=== PATIENT | male | born 1960 | race Caucasian/White ===

== ENCOUNTER 2017-04-07 06:30 | Observation (INO) ==
[2017-04-07] MEDS ORDERED: Acetaminophen 325 MG TABLET PO PRN ×2 (09:46→10:41)
[2017-04-07] MEDS ORDERED: Naloxone 0.4 MG/ML INJ IVP PRN (09:48)
[2017-04-07] MEDS ORDERED: Ondansetron 4 MG/2 ML VIAL IVP PRN (09:48)
[2017-04-07] MEDS ORDERED: Nitroglycerin 0.4 MG TAB.SUBL SL PRN (09:48)
[2017-04-07] MEDS ORDERED: (Rizatriptan Benzoate [Maxalt] 5 MG) PO PRN (10:38)
[2017-04-07] MEDS ORDERED: *HR* Morphine 2 MG/ML SYRINGE IVP PRN (10:41)
[2017-04-07] MEDS ORDERED: 0.9 % Sodium Chloride 1,000 ML ONE (10:46)
--- NOTE | 2017-04-07 10:47 | Internal Med History&Physical ---
Date of Encounter: 04/07/17 Time of Encounter: 10:42 Assessment and Plan (1) Coronary artery disease Current visit: Yes Status: Acute Patient had a stress test in 2014 which showed a fixed inferior wall defect and no evidence of ischemia. EF was normal at that time. He follows up with cardiology. We will continue aspirin. Given his ongoing chest pain wall consult cardiology for concern of unstable angina and possible need for cardiac catheterization. Qualifiers: Coronary Disease-Associated Artery/Lesion type: [place] artery [place] vs. transplanted heart: [place] heart Associated angina: with unstable angina Qualified Code(s): I25.110 - Atherosclerotic heart disease of [place] coronary artery with unstable angina pectoris (2) Essential hypertension Current visit: Yes Status: Acute He is on diltiazem at home. We will continue this. His blood pressure dropped with administration of nitroglycerin in the emergency department and therefore I will hold antihypertensives today. (3) Hyperlipidemia Current visit: Yes Status: Acute Continue with simvastatin per home dose regimen. Qualifiers: Hyperlipidemia type: unspecified Qualified Code(s): E78.5 - Hyperlipidemia , unspecified (4) Dementia Current visit: Yes Status: Acute Close mental status monitoring. Avoid overly sedative medication. Qualifiers: Dementia type: unspecified type Dementia behavioral disturbance: without behavioral disturbance Qualified Code(s): F03.90 - Unspecified dementia without behavioral disturbance (5) Chest pain Current visit: No Status: Acute He has had recurrent chest pain concerning for unstable angina. We will provide nitroglycerin and morphine for pain. He is chronically anticoagulated with Eliquis said this point I will hold any further anticoagulation. Continue with aspirin and statin. Trend troponin. Consult cardiology. Qualifiers: Chest pain type: chest pain due to myocardial ischemia Ischemic chest pain type: unstable angina pectoris Qualified Code(s): I20.0 - Unstable angina Internal Medicine - H&P: HPI Admitted From: Intrahospital Transfer Plans for Post Hospital Care: Home History of present illness: Mr. Ferguson is a 56 year old male with past medical history significant for coronary artery disease, hypertension, mild dementia, dyslipidemia, status post pacemaker placement who was transferred from [facility] where he presented with chest pain. Mr. Ferguson reports that he started experiencing chest pain at 10 PM last night located in the left side of the chest. The pain was pressure-like, severe, worse with deep breathing and not associated with diaphoresis nausea or shortness of breath. He presented to [place] where he was given nitroglycerin which did not help relieve his pain. Morphine caused some relief. Currently the patient continues to have dull left-sided chest pain which he grades as 3/10. Review of systems: Memory impairment secondary to dementia A 10 point review of systems was negative except as above Family history significant for coronary artery disease and multiple multiple myeloma in the patient's father Past Med Surg Social Fam HX - Past Medical History Medical history: coronary artery disease, CVA, dementia, hyperlipidemia, hypertension, other Psychiatric history: no psych history - Past Surgical History Surgical History: cholecystectomy, herniorrhaphy, pacemaker/AICD - Social History Smoking Status: Former smoker Smokeless Tobacco Status: No Alcohol use: none Drug use: none Internal Medicine - H&P: Meds Apixaban [Eliquis] 5 mg PO BID 10/20/16 [History] Aspirin 325 mg PO DAILY 10/20/16 [History] Citalopram [CeleXA] 20 mg PO HS 10/20/16 [History] Diltiazem CD (24hr) [Cardizem CD] 180 mg PO HS 10/20/16 [History] Propranolol HCl 80 mg PO HS 10/20/16 [History] Psyllium Husk [Daily Fiber] 0.52 gm PO HS 10/20/16 [History] Rizatriptan Benzoate [Maxalt] 5 mg PO DAILY PRN 10/20/16 [History] Simvastatin 10 mg PO HS 10/20/16 [History] Namzaric 28 mg-10 mg Capsule mg PO DAILY 04/07/17 [History] Tamsulosin HCl [Flomax] 0.4 mg PO DAILY 04/07/17 [History] Allergies meperidine [From Demerol] Adverse Reaction (Verified 04/07/17 04:23) anger All Systems PM: A 10-system review of systems was performed and is negative for pertinent findings except as documented above in the HPI. - Constitutional Vitals: Temp Pulse Resp BP Pulse Ox 97.4 F L 70 15 120/80 95 04/07/17 08:47 04/07/17 08:47 04/07/17 08:47 04/07/17 08:47 04/07/17 09:20 General appearance: Present: A&O X 3 - Respiratory Respiratory exam: Present: CTAB. Absent: accessory muscle use, rales, rhonchi, wheezes - Cardiovascular Cardiovascular exam: Present: RRR, +S1, +S2. Absent: diastolic murmur, gallop, rubs, systolic murmur - GI/Abdominal GI/Abdominal exam: Present: normal bowel sounds, soft, no peritoneal signs. Absent: distended, tenderness - Neurological Exam Neurological exam: Present: CN II-XII intact, oriented X3, no focal deficits. Absent: pronater drift, facial droop, speech deficit - Skin Skin exam: Present: dry, intact Internal Med - H&P Results - Labs Labs: Cardiac Enzymes 04/07/17 Range/Units 10:05 Troponin I 0.01 (0-0.03) ng/mL Per [facility] medical record, laboratory data collected on 04/07/2017: Troponin 0.02, creatinine 1.08, BNP less than 10. Chest x-ray [facility] reveals no acute cardiopulmonary disease. - EKG Data -: EKG Interpreted by Myself (Atrial ventricular paced with 100% capture)
[2017-04-07] MEDS: 0.9 % Sodium Chloride 1,000 ML IVC SCH ×2 (12:04→20:08)
[2017-04-07] MEDS ORDERED: Regadenoson 0.4 MG/5 ML SYRINGE IVP ONE (12:35)
--- NOTE | 2017-04-07 14:23 | Cardiology Consult Note ---
Date of Encounter: 04/07/17 Time of Encounter: 14:19 Assessment and Plan (1) Chest pain Current Visit: No Status: Acute Chest pain symptoms somewhat atypical. Troponin negative x 2. EKG with AV pacing. [facility] in 2011 showed minimal CAD. Last stress test in 2014. Recommend stress test for further evaluation. Further recommendations to follow. Continue asa and statin therapy. Qualifiers: Chest pain type: chest pain due to myocardial ischemia Ischemic chest pain type: unstable angina pectoris Qualified Code(s): I20.0 - Unstable angina (2) Atrial fibrillation Current Visit: Yes Status: Acute Currently paced on monitor. On propranolol for rythm control. On eliquis for anticoagulation. Eliquis currently on hold for chest pain evaluation. Qualifiers: Atrial fibrillation type: paroxysmal Qualified Code(s): I48.0 - Paroxysmal atrial fibrillation Discussion w patient/family: The assessment and plan as outlined above was discussed with the patient and/or family members who expressed understanding and agreement. All questions were answered. Thank you for involving us in the care of your patient. Please call with any questions. History of Present Illness Consult date: 04/07/17 Requesting physician: Micheal Clement Consult reason: Chest pain Chief complaint: Left shoulder pain History of present illness: Mr. Ferguson is a 56 year old male with a past medical history significant for PPM for SSS, atrial fibrillation on eliquis, HTN, and HLD who presents with sudden onset of left shoulder pain at 9:30 pm last night. He states it felt like something burst. He tried to go to sleep but could not get comfortable so he went to [place] [facility]. He was given SL NTG with some relief. He says everything he was give just took the edge off. He was given morphine this afternoon with relief. He denies SOB or palpitations. Denies orthopnea, PND, or edema. C/o left hand tingling and numbness. Initial work-up includes EKG that shows AV pacing. Troponin negative x 2. He was transferred to [facility] for further work-up. Cardiology consulted for concern for unstable angina. Previous cardiac testing. [facility] 06/19/2012- minimal CAD. [facility] 09/26/12- EF 55%. No significant valvular disease. Stress test 09/15/15- Negative for ischemia or infarct. Past Med Surg Social Fam HX - Past Medical History Medical history: coronary artery disease, CVA, dementia, hyperlipidemia, hypertension, other (sss) Psychiatric history: no psych history - Past Surgical History Surgical History: cholecystectomy, herniorrhaphy, pacemaker/AICD - Social History Smoking Status: Former smoker Smokeless Tobacco Status: No Alcohol use: none Drug use: none Medications and Allergies Apixaban [Eliquis] 5 mg PO BID 10/20/16 [History] Aspirin 325 mg PO DAILY 10/20/16 [History] Citalopram [CeleXA] 20 mg PO HS 10/20/16 [History] Diltiazem CD (24hr) [Cardizem CD] 180 mg PO HS 10/20/16 [History] Propranolol HCl 80 mg PO HS 10/20/16 [History] Psyllium Husk [Daily Fiber] 0.52 gm PO HS 10/20/16 [History] Rizatriptan Benzoate [Maxalt] 5 mg PO DAILY PRN 10/20/16 [History] Simvastatin 10 mg PO HS 10/20/16 [History] Namzaric 28 mg-10 mg Capsule mg PO DAILY 04/07/17 [History] Tamsulosin HCl [Flomax] 0.4 mg PO DAILY 04/07/17 [History] Allergies meperidine [From Demerol] Adverse Reaction (Verified 04/07/17 04:23) anger All Systems Review: A 10-system review of systems was performed and is negative for pertinent findings except as documented above in the HPI. Physical Examination Vital Signs Temp Pulse Resp BP Pulse Ox 04/07/17 09:20 95 04/07/17 08:47 97.4 F L 70 15 120/80 95 Intake and Output 04/06/17 04/07/17 04/07/17 23:59 07:59 15:59 Other: Weight 98.146 kg Patient Weight 04/07/17 23:59 Weight 98.146 kg General: Conversant, No Apparent Distress HEENT: Atraumatic, Normocephaly, Mucus Membranes Moist Neck: No JVD, Normal carotid pulses Cardiac: Reg Rate and Rhythm, Normal S1 and S2, No Murmur, Other (AV paced on telemetry. ) Lungs: Normal Breath Sounds, No Wheeze, Rales, Rhonchi Neuro: Alert and responsive, No focal deficits noted Abdomen: Soft, Non-Tender Skin: No rashes noted on visualized skin Musculoskeletal: No Chest Wall Tenderness Extremities: No Clubbing, No Cyanosis, No Edema, Normal Pulses Results Lab Results 04/07/17 10:05 Troponin I 0.01 - Imaging and Cardiology Stress Test: report reviewed Echo: report reviewed Cardiac cath: report reviewed - EKG Interpretation EKG results cardiology: personally reviewed Consult Discharge Plan - Plan Referrals: Ronny Dickerson MD [Primary Care Provider] -
--- NOTE | 2017-04-07 14:50 | Nuclear Medicine Stress Report ---
Regadenoson Nuclear Stress Name: Ronny Ferguson Date of Study: 04/07/2017 Date: 1960 Ht: 72.0 in Medical Record#: [id number] Age: 56 Wt: 216.0 lb Gender: Male Order #: [id number] Location: [facility] Room: [facility] Supervising Provider: Fernando You CNP Reading Physician: Ronny Boucher MD, [facility] Ordering Physician: Guru Cedeno CNP Primary Care Physician: None Stress Technologist: Olivia Khalil SHIPPING WEIGHER, CCT Practice Coordinator: Harry Billy Indications: Chest Pain Impression: Gated LVEF = 66%. Perfusion imaging was negative for ischemia or infarct. History: Hypertension Hypercholesteremia Stress Test Summary: Stress Test Type: Pharmacologic Regadenoson 0.4mg/5ml given IV Baseline Information: Initial Heart Rate: 70 Blood Pressure: 122/84 Stress Information: Test Terminated Due to (primary): As per protocol Maximum Blood Pressure: 132/82 Maximum Heart Rate: 71 Percent Maximum Heart Rate Achieved: 44 Double Product: 9370 Symptoms: No chest symptoms Nuclear Summary: SPECT myocardial perfusion imaging using Tc99m Sestamibi given intravenously was performed at rest and following cardiac stress testing. The resting images were obtained following initial dose of 11.3 mCi. Following stress an additional dose of 31.9 mCi was given at peak exercise or 30 seconds post regadenoson infusion. Findings: Stress Note * Resting ECG demonstrated an A-V paced rhythm. * Atrial pacing was noted throughout the study. Ventricular pacing was intermittent. * Patient had no chest pain during stress. * Pharmacologic stress ECG is non-diagnostic for ischemia due to baseline v-paced rhythm. Hemodynamic responses * Normal hemodynamic responses to pharmacologic stress. Study Quality * Study quality is good. Gated EF % * Gated LVEF = 66%. Left Ventricle * The left ventricle is not dilated. * Normal Segmental Perfusion in rest. * Normal segmental perfusion in stress. TID * No evidence of transient ischemic dilatation. Updated by Ronny Boucher MD, [facility] on 04/07/2017 2:46:06 PM electronically signed on 04/07/2017 2:46:57 PM with status of Final
--- NOTE | 2017-04-07 15:10 | Electrocardiograph Report ---
[place] [id number] Test Date: 2017-04-07 Pat Name: Ronny Ferguson Department: 113 Room: 3B21 Gender: M Appeals Assistant: : 1960 Requested By: Zohreh Gonzalez Order Number: [id number] Reading MD: Kike Jhaveri MD Measurements Intervals [place] Rate: 69 P: 231 CT: 192 QRS: -57 QRSD: 206 T: 83 QT: 485 QTc: 505 Interpretive Statements ELECTRONIC ATRIAL PACEMAKER ELECTRONIC VENTRICULAR PACEMAKER Electronically Signed On 04-07-2017 15:08:59 EDT by Kike Jhaveri MD
--- NOTE | 2017-04-07 17:28 | Event Note ---
Date of Encounter: 04/07/17 Time of Encounter: 17:21 - Cardiology Event Note Stress test was negative for ischemia or infarct. He denies recurrent chest pain since receiving morphine this afternoon. No indication for further cardiac testing. Consider work-up for non-cardiac cause of chest pain. Out-pt f/u will be scheduled in 2 weeks.
[2017-04-07] MEDS ORDERED: APIXABAN 5 MG TABLET PO SCH (21:00)
[2017-04-07] MEDS ORDERED: Diltiazem CD (24hr) 180 MG CAPSULE PO SCH (21:00)
[2017-04-07] MEDS ORDERED: Psyllium 1 PACKET POWD.PACK PO SCH (21:00)
[2017-04-07] MEDS ORDERED: Propranolol LA (24 HR) 80 MG CAP.SA.24H PO SCH (21:00)
[2017-04-08 05:32] LABS: Basophils % 0.4 %; Eosinophils # 0.3 K/mcL (0.0-0.6); Eosinophils % 4.6 %; Hematocrit 41.5 % (37.5-50.1); Hemoglobin 13.9 g/dL (12.9-16.9); Immature Granulocytes % 0.6 % (0-4); Lymphocytes # 1.9 K/mcL (0.6-4.6); Lymphocytes % 28.3 %; Mean Corpuscular HGB Conc 33.5 g/dL (31.6-35.5); Mean Corpuscular Hemoglobin 29.8 pg (28.0-33.3); Mean Corpuscular Volume 88.9 fL (83.0-100.0); Mean Platelet Volume 9.2 fL (9.4-12.4); Monocytes # 0.9 K/mcL (0.0-1.3); Monocytes % 13.8 %; Neutrophils # 3.5 K/mcL (1.6-8.9); Platelet Count 218 K/mcL (140-400); Red Blood Count 4.67 M/mcL (4.19-5.50); Red Cell Distribution Width 13.6 % (11.5-14.5); Segmented Neutrophils % 52.3 %
[2017-04-08 05:51] LABS: BUN/Creatinine Ratio 14 (6-26); Blood Urea Nitrogen 15 mg/dL (8-26); Carbon Dioxide 23 mEq/L (19-29); Chloride 110 mEq/L (98-109); Glucose 98 mg/dL (70-99); Osmolality,Calculated 289 (280-300); Potassium 4.2 mEq/L (3.5-4.5); Sodium 139 mEq/L (136-145); eGFR For African Americans > 60 (> 60); eGFR For Non-African Americans > 60 (> 60)
[2017-04-08 06:55] VITALS: BP 112/80
--- NOTE | 2017-04-08 08:03 | Discharge Summary ---
Date of Encounter: 04/08/17 Time of Encounter: 07:30 - Discharge Diagnosis (1) Chest pain Priority: Primary Status: Resolved Comments: Patient denied chest pain on day of discharge. Stress test negative. ACS ruled out. Cleared for outpatient follow-up by cardiology Qualifiers: Chest pain type: chest pain due to myocardial ischemia Ischemic chest pain type: unstable angina pectoris Qualified Code(s): I20.0 - Unstable angina (2) Coronary artery disease Priority: Secondary Status: Chronic Qualifiers: Coronary Disease-Associated Artery/Lesion type: [place] artery [place] vs. transplanted heart: [place] heart Associated angina: with unstable angina Qualified Code(s): I25.110 - Atherosclerotic heart disease of [place] coronary artery with unstable angina pectoris (3) Essential hypertension Priority: Secondary Status: Chronic Comments: Controlled, follow-up outpatient (4) Dementia Priority: Secondary Status: Chronic Comments: Alert and oriented 3 on day of discharge Qualifiers: Dementia type: unspecified type Dementia behavioral disturbance: without behavioral disturbance Qualified Code(s): F03.90 - Unspecified dementia without behavioral disturbance (5) Atrial fibrillation Priority: Secondary Status: Chronic Comments: Rate controlled, on Eliquis Qualifiers: Atrial fibrillation type: paroxysmal Qualified Code(s): I48.0 - Paroxysmal atrial fibrillation - Discharge Medications Home Medications: Apixaban [Eliquis] 5 mg PO BID 10/20/16 [History] Aspirin 325 mg PO DAILY 10/20/16 [History] Citalopram [CeleXA] 20 mg PO HS 10/20/16 [History] Diltiazem CD (24hr) [Cardizem CD] 180 mg PO HS 10/20/16 [History] Propranolol HCl 80 mg PO HS 10/20/16 [History] Psyllium Husk [Daily Fiber] 0.52 gm PO HS 10/20/16 [History] Rizatriptan Benzoate [Maxalt] 5 mg PO DAILY PRN 10/20/16 [History] Simvastatin 10 mg PO HS 10/20/16 [History] Namzaric 28 mg-10 mg Capsule mg PO DAILY 04/07/17 [History] Tamsulosin HCl [Flomax] 0.4 mg PO DAILY 04/07/17 [History] Allergies/Adverse Reactions: Allergies meperidine [From Demerol] Adverse Reaction (Verified 04/07/17 04:23) anger Procedures/tests Complete & Pending: Procedures Performed prior 72 hours Category Date Time Status NM lucille perf SPECT multi [NM] Routine Exams 04/07/17 12:01 Taken ECG 12 lead ECG [ECG] Routine Y 04/07/17 10:27 Completed SP pharm nuclear stress Routine Y 04/07/17 12:01 Completed Date of admission: 04/07/17 08:17 Primary care physician: Regine Ashley Consults: 04/07/17 10:40 Consult to Cardiology [CONS] Routine Comment: Consulting Provider: [facility] Reason for Consult: Chest pain Time Notified: 10:40 Call Completed: Yes Discharging clinician: Zohreh Gonzalez Anticipated date of discharge: 04/08/17 - Patient Status Disposition: Home, Self-Care Condition: Good Functional capacity at discharge: independent ambulation Overall status at discharge: patient is back to baseline - Discharge Instructions Follow Up With: Ronny Dickerson MD [Primary Care Provider] - [facility] [Provider Group] Additional Instructions: Followup with primary care provider in 1-2 weeks. Followup with cardiology in 2 weeks. - Diet and Activity Activity: increase activity as tolerated Diet: low fat, low cholesterol, low salt diet Hospital course: Mr. Ferguson is a 56 year old male with past medical history of CAD, hypertension, mild dementia, dyslipidemia, status post pacemaker placement. Patient was transferred from [place] with a chief complaint of chest pain. Patient stating he started to express chest pain on the night of presentation located on the left side of his chest that was pressure-like, severe, and worse with deep breathing. Not associated with diaphoresis, nausea, or shortness of breath. At [facility], nitroglycerin did not help, morphine caused some relief. Patient continued to have dull, left-sided chest pain and was transferred to [facility] and admitted to the hospitalist service for further evaluation and management. Cardiology was brought on board who proceeded with a stress test that was negative. Troponins negative 2. Patient was observed overnight and his chest pain subsided and he remained chest pain-free on day of discharge. He was cleared for outpatient followup per Cardiology. He was discharged home in stable condition with close outpatient followup recommended. Regadenosen nuclear stress impression: Gated LVEF equals 66%. Perfusion imaging was negative for ischemia or infarct. - Time Spent with Patient Total time spent providing and/or coordinating discharge services: - Constitutional Vitals: Temp Pulse Resp BP Pulse Ox 97.6 F 71 16 112/80 97 04/08/17 06:52 04/08/17 06:52 04/08/17 06:52 04/08/17 06:52 04/08/17 06:52 General appearance: Present: A&O X 3, no acute distress, answers questions appropriately - Head Head exam: Present: atraumatic, normocephalic - Eye Eye exam: Present: PERRL, conjuntiva pink, sclera anicteric Pupils: Present: PERRL - Neck Neck exam general surgery: Present: supple, trachea midline. Absent: lymphadenopathy - Respiratory Respiratory exam: Present: CTAB. Absent: accessory muscle use, rales, respiratory distress, rhonchi, wheezes - Cardiovascular Cardiovascular exam: Present: RRR, +S1, +S2. Absent: diastolic murmur, gallop, rubs, systolic murmur - GI/Abdominal GI/Abdominal exam: Present: normal bowel sounds, soft, no peritoneal signs. Absent: distended, tenderness - Extremities Exam Extremities exam: Present: warm, radial pulses palpable and symetrical. Absent : calf tenderness, cyanotic, pedal edema - Neurological Exam Neurological exam: Present: alert, CN II-XII intact, normal gait, oriented X3, no focal deficits, strengths equal and symetr throughout. Absent: pronater drift, facial droop, speech deficit - Skin Skin exam: Present: dry, intact, normal color, warm
[2017-04-08] MEDS ORDERED: Aspirin 325 MG TABLET PO SCH (09:00)
== END 2017-04-08 08:35 | disposition home or self-care (01) ==
LOC: 3BNU
PROVIDERS: ADMIT Internal Medicine; ATTEND Nurse Practitioner Family

== ENCOUNTER 2017-06-26 17:48 | Observation (INO) ==
[2017-06-26] MEDS ORDERED: Aspirin 81 MG TAB.CHEW PO ONE (17:59)
--- NOTE | 2017-06-26 18:13 | Emergency Department Note ---
Disposition Clinical Impression: Essential hypertension Chest pain Qualifiers: Chest pain type: unspecified Qualified Code(s): R07.9 - Chest pain, unspecified Disposition: Admitted As Inpatient Condition: Fair Referrals: Rolando Terrell CNP [Primary Care Provider] - Forms: ED Satisfaction Letter Time of Disposition: 18:50 Chest Pain HPI - General Chief Complaint: ED Chest Pain Stated Complaint: CP// has heart hx Time Seen by Provider: 06/26/17 17:59 Source: patient, family Mode of arrival: ambulatory Limitations: no limitations Vital Signs Reviewed: Yes Nursing Notes Reviewed: Yes - History of Present Illness HPI Narrative: 57-year-old with history of previous CVA who comes in complaining of chest pain that began an hour prior to arrival he describes as a crushing chest discomfort and he is diaphoretic on exam. Review of his records show that he did have a nuclear stress test back in 2016 that was negative for acute ischemia. Patient did take nitroglycerin prior to arrival. 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[employer] Duration: constant Onset: during rest Pain Location: substernal, left chest Severity: severe Severity scale (1-10): 10 Quality: tightness, aching, heaviness Pain Radiation: none Improves with: nothing Worsens with: nothing Associated symptoms: Reports: diaphoresis Treatments prior to arrival chest pain: nitroglycerin - Related Data Home Medications Medication Instructions Recorded Confirmed Apixaban [Eliquis] 5 mg PO BID 10/20/16 04/07/17 Aspirin 325 mg PO DAILY 10/20/16 04/07/17 Citalopram [CeleXA] 20 mg PO HS 10/20/16 04/07/17 Diltiazem CD (24hr) [Cardizem CD] 180 mg PO HS 10/20/16 04/07/17 Propranolol HCl 80 mg PO HS 10/20/16 04/07/17 Psyllium Husk [Daily Fiber] 0.52 gm PO HS 10/20/16 04/07/17 Rizatriptan Benzoate [Maxalt] 5 mg PO DAILY PRN 10/20/16 04/07/17 Simvastatin 10 mg PO HS 10/20/16 04/07/17 Namzaric 28 mg-10 mg Capsule mg PO DAILY 04/07/17 Tamsulosin HCl [Flomax] 0.4 mg PO DAILY 04/07/17 04/07/17 Allergies Allergy/AdvReac Type Severity Reaction Status Date / Time meperidine [From Demerol] AdvReac anger Verified 06/26/17 17:54 All systems ED: reviewed and negative except as stated. Constitutional: Denies: fever, chills, weakness, weight change Eyes: Denies: eye pain, eye discharge, vision change ENT ED: Denies: ear pain, throat pain, dental pain, hearing loss, epistaxis, congestion, dysphagia Cardiovascular: Reports: chest pain. Denies: palpitations, dyspnea on exertion , edema, syncope Respiratory: Denies: cough, dyspnea, wheezes, hemoptysis, stridor Gastrointestinal: Denies: abdominal pain, nausea, vomiting, diarrhea, constipation, hematemesis, melena, hematochezia Genitourinary: Denies: urgency, dysuria, frequency, hematuria Musculoskeletal: Denies: back pain, neck pain, arthralgia, myalgia Integumentary: Denies: rash, abrasion, lesions Neurological: Denies: headache, weakness, numbness, paresthesias, confusion, abnormal gait, vertigo Psychiatric: Denies: anxiety, depression, suicidal thoughts, homicidal thoughts , auditory hallucinations, visual hallucinations Endocrine: Denies: fatigue Hematological/Lymphatic: Denies: easy bleeding, easy bruising Allergic/Immunologic: Denies: facial swelling, urticaria Chest Pain PMH - Past Medical History Medical history: Reports: coronary artery disease, CVA, dementia, hyperlipidemia , hypertension, other Surgical history: Reports: cholecystectomy, herniorrhaphy, pacemaker/AICD Psychiatric history: Reports: no psych history - Social History Smoking Status: Former smoker Alcohol use: Reports: none Drug use: Reports: none Physical Exam - General Limitations: no limitations General appearance: alert, in no apparent distress - Head Head exam: atraumatic, normocephalic, normal inspection - Eye Eye exam: Present: normal appearance, PERRL, EOMI - ENT ENT exam: normal exam, normal oropharynx, mucous membranes moist - Neck Neck exam: Present: normal inspection, full ROM, trachea midline - Chest Chest inspection: Present: normal inspection, symmetric chest wall rise - Respiratory Respiratory exam: Present: normal lung sounds bilaterally - Cardiovascular Cardiovascular exam: Present: regular rate, normal rhythm, normal heart sounds - Abdominal Exam Abdominal exam: Present: soft, Non-Tender. Absent: tenderness, distention, guarding, rebound, rigidity - Extremities Exam Extremities exam: Present: normal inspection, full ROM. Absent: tenderness, pedal edema - Expanded Lower Extremity Exam Neurovascular/Tendon exam: Absent: motor deficit, sensory deficit, tendon deficit Gait: not tested/not observed - Back Exam Back exam: Present: normal inspection, full ROM. Absent: tenderness - Neurological Exam Neurological exam: Present: alert, oriented X3 - Psychiatric Psychiatric exam: Present: normal affect, normal mood - Skin Skin exam: Present: warm, dry, intact, normal color Course - Reevaluation(s) Reevaluation #1: Patient states his pain is gotten worse so we did do a repeat EKG which shows a sinus rhythm without acute changes from previous EKG. Time: 18:43 - Consultations Consultation #1: Discussed with Dr. Lesa Kennedy going to send her the EKGs. Time: 18:11 Consultation #2: STEMI alert canceled as Dr. Lesa Kennedy feels the EKG changes are not significant to reach the level of a STEMI. Time: 18:18 Consultation #3: I discussed the case with , karen. Time: 20:08 Vital Signs Temperature 97.5 F L 06/26/17 17:52 Pulse Rate 70 06/26/17 17:52 Respiratory Rate 22 06/26/17 17:52 Blood Pressure 120/84 06/26/17 17:52 O2 Sat by Pulse Oximetry 99 06/26/17 17:52 Temperature 97.5 F L 06/26/17 17:52 Pulse Rate 80 06/26/17 19:02 Respiratory Rate 18 06/26/17 19:02 Blood Pressure 128/94 06/26/17 19:02 O2 Sat by Pulse Oximetry 99 06/26/17 19:02 Oxygen Delivery Oxygen Delivery Room Air Chest Pain - Lab Data Lab results reviewed: Yes I reviewed the patient's lab results. Result diagrams: 06/26/17 18:10 06/26/17 18:10 Lab Results 06/26/17 06/26/17 06/26/17 Range/Units 18:10 18:10 18:10 WBC 10.1 (4.3-11.1) K/mcL RBC 5.30 (4.19-5.50) M/mcL Hgb 15.6 (12.9-16.9) g/dL Hct 46.3 (37.5-50.1) % MCV 87.4 (83.0-100.0) fL MCH 29.4 (28.0-33.3) pg MCHC 33.7 (31.6-35.5) g/dL RDW 13.1 (11.5-14.5) % Plt Count 291 (140-400) K/mcL MPV 9.3 L (9.4-12.4) fL Immature Gran % 0.3 (0-4) % Seg Neutrophils % 55.1 % Lymphocytes % 30.7 % Monocytes % 9.9 % Eosinophils % 3.5 % Basophils % 0.5 % Neutrophils # 5.6 (1.6-8.9) K/mcL Lymphocytes # 3.1 (0.6-4.6) K/mcL Monocytes # 1.0 (0.0-1.3) K/mcL Eosinophils # 0.4 (0.0-0.6) K/mcL Basophils # 0.1 (0.0-0.2) K/mcL PT 12.7 H (9.4-12.1) Seconds INR 1.2 APTT 36.6 H (26.0-36.0) Seconds Sodium (136-145) mEq/L Potassium (3.5-4.5) mEq/L Chloride (98-109) mEq/L Carbon Dioxide (19-29) mEq/L BUN (8-26) mg/dL Creatinine (0.72-1.25) mg/dL Est GFR ( Amer) (> 60) Est GFR (Non-Af Amer) (> 60) BUN/Creatinine Ratio (6-26) Glucose (70-99) mg/dL Calculated Osmolality (280-300) Calcium (8.6-10.8) mg/dL Troponin I (0-0.03) ng/mL B-Natriuretic Peptide < 10 (0-100) pg/mL 06/26/17 06/26/17 Range/Units 18:10 18:10 WBC (4.3-11.1) K/mcL RBC (4.19-5.50) M/mcL Hgb (12.9-16.9) g/dL Hct (37.5-50.1) % MCV (83.0-100.0) fL MCH (28.0-33.3) pg MCHC (31.6-35.5) g/dL RDW (11.5-14.5) % Plt Count (140-400) K/mcL MPV (9.4-12.4) fL Immature Gran % (0-4) % Seg Neutrophils % % Lymphocytes % % Monocytes % % Eosinophils % % Basophils % % Neutrophils # (1.6-8.9) K/mcL Lymphocytes # (0.6-4.6) K/mcL Monocytes # (0.0-1.3) K/mcL Eosinophils # (0.0-0.6) K/mcL Basophils # (0.0-0.2) K/mcL PT (9.4-12.1) Seconds INR APTT (26.0-36.0) Seconds Sodium 138 (136-145) mEq/L Potassium 4.0 (3.5-4.5) mEq/L Chloride 105 (98-109) mEq/L Carbon Dioxide 21 (19-29) mEq/L BUN 10 (8-26) mg/dL Creatinine 1.26 H (0.72-1.25) mg/dL Est GFR ( Amer) > 60 (> 60) Est GFR (Non-Af Amer) 59 L (> 60) BUN/Creatinine Ratio 8 (6-26) Glucose 80 (70-99) mg/dL Calculated Osmolality 284 (280-300) Calcium 10.1 (8.6-10.8) mg/dL Troponin I 0.01 (0-0.03) ng/mL B-Natriuretic Peptide (0-100) pg/mL - Radiology Data Radiology results reviewed: Yes I reviewed the patient's radiology results. - EKG Data EKG attestation: Yes I reviewed and interpreted this EKG. EKG shows normal: sinus rhythm Rate: normal Rhythm: NSR ST segment elevation in: I, aVL T wave inversions noted in: III, aVF When compared to previous EKG there are: other (Previous EKG was ventricular paced of this one is atrial peso comparisons are possible.) Interpretation: no acute changes Heart Score - Score History: Highly Suspicious EKG: Non Specific repolarisation Disturbance Age: 45-65 Risk Factors: Equal/Greater than 3 risk factor or history of atherosclerotic disease Troponin: Less than normal limit HEART Score Total: 6
[2017-06-26 18:21] LABS: Basophils # 0.1 K/mcL (0.0-0.2); Basophils % 0.5 %; Eosinophils # 0.4 K/mcL (0.0-0.6); Eosinophils % 3.5 %; Hematocrit 46.3 % (37.5-50.1); Hemoglobin 15.6 g/dL (12.9-16.9); Immature Granulocytes % 0.3 % (0-4); Lymphocytes # 3.1 K/mcL (0.6-4.6); Lymphocytes % 30.7 %; Mean Corpuscular HGB Conc 33.7 g/dL (31.6-35.5); Mean Corpuscular Hemoglobin 29.4 pg (28.0-33.3); Mean Corpuscular Volume 87.4 fL (83.0-100.0); Mean Platelet Volume 9.3 fL (9.4-12.4); Monocytes % 9.9 %; Neutrophils # 5.6 K/mcL (1.6-8.9); Platelet Count 291 K/mcL (140-400); Red Cell Distribution Width 13.1 % (11.5-14.5); Segmented Neutrophils % 55.1 %
[2017-06-26 18:26] LABS: INR 1.2; Prothrombin Time 12.7 Seconds (9.4-12.1)
[2017-06-26 18:28] LABS: Activated Partial Thrombo Time 36.6 Seconds (26.0-36.0)
[2017-06-26 18:34] LABS: BUN/Creatinine Ratio 8 (6-26); Blood Urea Nitrogen 10 mg/dL (8-26); Calcium 10.1 mg/dL (8.6-10.8); Carbon Dioxide 21 mEq/L (19-29); Chloride 105 mEq/L (98-109); Glucose 80 mg/dL (70-99); Osmolality,Calculated 284 (280-300); Sodium 138 mEq/L (136-145); eGFR For African Americans > 60 (> 60); eGFR For Non-African Americans 59 (> 60)
[2017-06-26] MEDS ORDERED: *HR* Morphine 2 MG/ML SYRINGE IVP ONE (18:41)
[2017-06-26] MEDS ORDERED: *HR* Promethazine 25 MG/ML VIAL IVP ONE (18:41)
[2017-06-26] MEDS ORDERED: Nitroglycerin 1 INCH/GM PACKET TP ONE (19:13)
[2017-06-26] MEDS ORDERED: Acetaminophen 325 MG TABLET PO PRN (22:41)
[2017-06-26] MEDS ORDERED: *HR* Morphine 2 MG/ML SYRINGE IVP PRN (22:41)
[2017-06-26] MEDS ORDERED: Naloxone 0.4 MG/ML INJ IVP PRN (22:41)
[2017-06-26] MEDS ORDERED: Nitroglycerin 0.4 MG TAB.SUBL SL PRN (22:46)
[2017-06-26] MEDS: 0.9 % Sodium Chloride 1,000 ML IVC SCH (23:21)
[2017-06-26] MEDS: Isosorbide MONOnitrate (24 HR) 30 MG TAB.ER.24H PO SCH (23:21)
[2017-06-26] MEDS: APIXABAN 5 MG TABLET PO SCH (23:21)
[2017-06-27 05:12] LABS: Basophils # 0.1 K/mcL (0.0-0.2); Basophils % 0.8 %; Eosinophils # 0.3 K/mcL (0.0-0.6); Eosinophils % 4.2 %; Hematocrit 41.3 % (37.5-50.1); Hemoglobin 14.2 g/dL (12.9-16.9); Immature Granulocytes % 0.3 % (0-4); Lymphocytes # 2.6 K/mcL (0.6-4.6); Lymphocytes % 39.7 %; Mean Corpuscular HGB Conc 34.4 g/dL (31.6-35.5); Mean Corpuscular Hemoglobin 30.5 pg (28.0-33.3); Mean Corpuscular Volume 88.8 fL (83.0-100.0); Mean Platelet Volume 9.4 fL (9.4-12.4); Monocytes # 0.8 K/mcL (0.0-1.3); Monocytes % 12.1 %; Neutrophils # 2.8 K/mcL (1.6-8.9); Platelet Count 232 K/mcL (140-400); Red Blood Count 4.65 M/mcL (4.19-5.50); Red Cell Distribution Width 13.3 % (11.5-14.5); Segmented Neutrophils % 42.9 %
[2017-06-27 05:29] LABS: BUN/Creatinine Ratio 10 (6-26); Blood Urea Nitrogen 12 mg/dL (8-26); Calcium 9.1 mg/dL (8.6-10.8); Carbon Dioxide 24 mEq/L (19-29); Chloride 107 mEq/L (98-109); Glucose 100 mg/dL (70-99); Magnesium 1.9 mg/dL (1.6-2.6); Osmolality,Calculated 288 (280-300); Sodium 139 mEq/L (136-145); eGFR For African Americans > 60 (> 60); eGFR For Non-African Americans > 60 (> 60)
--- NOTE | 2017-06-27 05:29 | Internal Med History&Physical ---
Date of Encounter: 06/26/17 Time of Encounter: 21:00 Assessment and Plan (1) Chest pain Current visit: Yes Status: Acute Patient has chest pain, with nausea and shortness of breath. There is EKG changes. - We will place patient on continuous cardiac monitoring. - Track of 3 sets of troponin. - Check echocardiogram. - Repeat EKG in a.m. - Consult cardiology. Qualifiers: Chest pain type: chest pain due to myocardial ischemia Ischemic chest pain type: unstable angina pectoris Qualified Code(s): I20.0 - Unstable angina (2) Essential hypertension Current visit: Yes Status: Chronic Continue home medications. (3) Atrial fibrillation Current visit: No Status: Chronic Heart rate is well controlled. Right now is pacing rhythm. Continue Eliquis for anticoagulations. Qualifiers: Atrial fibrillation type: paroxysmal Qualified Code(s): I48.0 - Paroxysmal atrial fibrillation (4) DVT prophylaxis Current visit: Yes Status: Acute Pt is on Eliquis. Internal Medicine - H&P: HPI Chief complaint: Chest pain Admitted From: Home Plans for Post Hospital Care: Home History of present illness: Mr. Ferguson is a 57 year old male with history of A. fib on Eliquis, bradycardia on PPM, history of CVA present to ER for chest pain, pain started around 5 PM today, intermittent, lasts about 1 hour, with nausea, shortness of breath, diaphoresis. He is a sharp and pressure-like, 9 out of 10, located on lower chest or upper abdominal area , radiated to back. Patient was given aspirin and nitroglycerin emergency room, it helps. Patient was also found T-wave inversion on III and aVF, T wave on II are flat. Cardiology consult by ER physician. Will admit patient to rule out ACS. Past Med Surg Social Fam HX - Past Medical History Medical history: coronary artery disease, CVA, dementia, hyperlipidemia, hypertension, other Psychiatric history: no psych history - Past Surgical History Surgical History: cholecystectomy, herniorrhaphy, pacemaker/AICD - Social History Smoking Status: Former smoker Smokeless Tobacco Status: No Alcohol use: none Drug use: none - Family History Mother Living Status: Age at : 70 Cause of : Heart problems Hx Family Cardiac Disorders: Yes Hx Family Endocrine Disorder: Yes (DM) Father Living Status: Cause of : Cancer Hx Family Cardiac Disorders: Yes Hx Family Cancer: Yes (Leukemia) Internal Medicine - H&P: Meds Apixaban [Eliquis] 5 mg PO BID 10/20/16 [History] Aspirin 325 mg PO DAILY 10/20/16 [History] Citalopram [CeleXA] 20 mg PO HS 10/20/16 [History] Diltiazem CD (24hr) [Cardizem CD] 180 mg PO HS 10/20/16 [History] Propranolol HCl 80 mg PO HS 10/20/16 [History] Psyllium Husk [Daily Fiber] 0.52 gm PO HS 10/20/16 [History] Rizatriptan Benzoate [Maxalt] 5 mg PO DAILY PRN 10/20/16 [History] Simvastatin 10 mg PO HS 10/20/16 [History] Namzaric 28 mg-10 mg Capsule 28 mg PO DAILY 04/07/17 [History] Tamsulosin HCl [Flomax] 0.4 mg PO DAILY 04/07/17 [History] 3 Allergy/AdvReac Type Severity Reaction Status Date / Time meperidine [From Demerol] AdvReac anger Verified 06/26/17 17:54 All Systems PM: A 10-system review of systems was performed and is negative for pertinent findings except as documented above in the HPI. - Constitutional Vitals: Temp Pulse Resp BP Pulse Ox 98.1 F 111 16 90/53 94 06/27/17 03:43 06/27/17 03:43 06/27/17 03:43 06/27/17 03:43 06/27/17 03:43 General appearance: Present: A&O X 3, no acute distress, answers questions appropriately - Head Head exam: Present: atraumatic, normocephalic - Eye Eye exam: Present: PERRL, conjuntiva pink, sclera anicteric Pupils: Present: PERRL - Neck Neck exam general surgery: Present: supple, trachea midline. Absent: lymphadenopathy - Respiratory Respiratory exam: Present: CTAB. Absent: accessory muscle use, rales, rhonchi, wheezes - Cardiovascular Cardiovascular exam: Present: RRR, +S1, +S2. Absent: diastolic murmur, gallop, rubs, systolic murmur - GI/Abdominal GI/Abdominal exam: Present: normal bowel sounds, soft, no peritoneal signs. Absent: distended, tenderness - Extremities Exam Extremities exam: Present: warm, radial pulses palpable and symmetrical. Absent : calf tenderness, cyanotic, pedal edema - Neurological Exam Neurological exam: Present: CN II-XII intact, oriented X3, no focal deficits. Absent: pronater drift, facial droop, speech deficit - Skin Skin exam: Present: dry, intact Internal Med - H&P Results - Labs CBC & Chem 7: 06/27/17 05:00 06/26/17 18:10 Labs: Short CBC 06/27/17 Range/Units 05:00 WBC 6.6 (4.3-11.1) K/mcL Hgb 14.2 (12.9-16.9) g/dL Hct 41.3 (37.5-50.1) % Plt Count 232 (140-400) K/mcL Neutrophils # 2.8 (1.6-8.9) K/mcL Cardiac Enzymes 06/26/17 Range/Units 22:56 Troponin I 0.00 (0-0.03) ng/mL - EKG Data -: EKG Interpreted by Myself (Pacing rhythm, T-wave change on II, III and aVF)
[2017-06-27] MEDS: APIXABAN 5 MG TABLET PO SCH ×2 (08:14→20:23)
[2017-06-27] MEDS: Isosorbide MONOnitrate (24 HR) 30 MG TAB.ER.24H PO SCH (08:14)
--- NOTE | 2017-06-27 09:09 | Cardiology Consult Note ---
Date of Encounter: 06/27/17 Time of Encounter: 09:06 Assessment and Plan (1) Chest pain Current Visit: Yes Status: Acute Chest pain which is atypical, CHARLIE negative despite prolonged symptoms. Would consider w/u for noncardiac cause. Qualifiers: Chest pain type: chest pain due to myocardial ischemia Ischemic chest pain type: unstable angina pectoris Qualified Code(s): I20.0 - Unstable angina Discussion w patient/family: The assessment and plan as outlined above was discussed with the patient and/or family members who expressed understanding and agreement. All questions were answered. Thank you for involving us in the care of your patient. Please call with any questions. History of Present Illness Consult date: 06/27/17 Requesting physician: Laura Elmore Consult reason: chest pain Chief complaint: chest pain History of present illness: Mr. Ferguson is a 57 year old male with history of PAF, S/P pacer. Ischemic workup in the past has been negative for ischemia, including and stress test in March and a heart cath in 2011 showing minimal disease. He presents with chehst pain that has been ongoing for several weeks but worse yesterday. It is substernal radiating to back with no aggravating or relieving factors. Nitro did not help it but morphine did. This AM he continues to complain of back pain. Past Med Surg Social Fam HX - Past Medical History Medical history: coronary artery disease, CVA, dementia, hyperlipidemia, hypertension, other Psychiatric history: no psych history - Past Surgical History Surgical History: cholecystectomy, herniorrhaphy, pacemaker/AICD - Social History Smoking Status: Former smoker Smokeless Tobacco Status: No Alcohol use: none Drug use: none - Family History Mother Living Status: Age at : 70 Cause of : Heart problems Hx Family Cardiac Disorders: Yes Hx Family Endocrine Disorder: Yes (DM) Father Living Status: Cause of : Cancer Hx Family Cardiac Disorders: Yes Hx Family Cancer: Yes (Leukemia) Medications and Allergies Apixaban [Eliquis] 5 mg PO BID 10/20/16 [History] Aspirin 325 mg PO DAILY 10/20/16 [History] Citalopram [CeleXA] 20 mg PO HS 10/20/16 [History] Diltiazem CD (24hr) [Cardizem CD] 180 mg PO HS 10/20/16 [History] Propranolol HCl 80 mg PO HS 10/20/16 [History] Psyllium Husk [Daily Fiber] 0.52 gm PO HS 10/20/16 [History] Rizatriptan Benzoate [Maxalt] 5 mg PO DAILY PRN 10/20/16 [History] Simvastatin 10 mg PO HS 10/20/16 [History] Namzaric 28 mg-10 mg Capsule 28 mg PO DAILY 04/07/17 [History] Tamsulosin HCl [Flomax] 0.4 mg PO DAILY 04/07/17 [History] 3 Allergy/AdvReac Type Severity Reaction Status Date / Time meperidine [From Demerol] AdvReac anger Verified 06/26/17 17:54 All Systems Review: A 10-system review of systems was performed and is negative for pertinent findings except as documented above in the HPI. Physical Examination Vital Signs, Last 4 Hours Temp Pulse Resp BP Pulse Ox 06/27/17 08:25 92 06/27/17 07:32 97.9 F 70 16 92/56 92 General: Conversant, No Apparent Distress HEENT: Other (Right eye trauma) Neck: No JVD, Normal carotid pulses Cardiac: Reg Rate and Rhythm, Normal S1 and S2, No Murmur Lungs: Normal Breath Sounds, No Wheeze, Rales, Rhonchi Neuro: Alert and responsive, No focal deficits noted Abdomen: Soft, Non-Tender Skin: No rashes noted on visualized skin Musculoskeletal: No Chest Wall Tenderness Extremities: No Clubbing, No Cyanosis, No Edema, Normal Pulses Results 06/27/17 05:00 06/27/17 05:00 Lab Results 06/26/17 06/27/17 06/27/17 22:56 05:00 05:00 WBC 6.6 Hgb 14.2 Hct 41.3 Plt Count 232 Sodium 139 Potassium 4.0 Chloride 107 Carbon Dioxide 24 BUN 12 Creatinine 1.17 Glucose 100 H Calcium 9.1 Magnesium 1.9 Troponin I 0.00 06/27/17 05:00 WBC Hgb Hct Plt Count Sodium Potassium Chloride Carbon Dioxide BUN Creatinine Glucose Calcium Magnesium Troponin I 0.03 - EKG Interpretation EKG results cardiology: personally reviewed (Intermittent atrial and ventricular pacing, T wave changes in precordium which are likely T wave memory from ventricular pacing) Consult Discharge Plan - Plan Referrals: Rolando Terrell CNP [Primary Care Provider] -
[2017-06-27] MEDS: 0.9 % Sodium Chloride 1,000 ML IVC SCH (16:06)
--- NOTE | 2017-06-27 17:15 | Internal Med Progress Note ---
Date of Encounter: 06/27/17 Time of Encounter: 15:25 - Assessment and plan (1) Chest pain Current Visit: Yes Status: Acute Assessment and plan: Patient denies chest pain currently. He had episode of chest pain yesterday that lasted unknown amount of time, anywhere from 12:40 hour. He denies radiation to me, tells admitting physician he there was radiation to his back. An echocardiogram showed LVEF of 60% atypical septal motion consistent with paced rhythm, mild LVEDD and no significant valvular dysfunction. His chest x-ray was negative for any acute process. Patient has stress test in March that was negative. He had a [facility] in 2011 showing minimal disease. He was seen by cardiology and they have signed off stating they do not believe this is cardiac in nature. We will monitor patient overnight on telemetry and monitor labs in the morning. Pain is not reproducible to palpation, though with movement, or with deep inspiration. Patient denies any reflux symptoms and abdomen is soft and nontender. His lungs are clear there is no peripheral edema. He has been started on Imdur. Will continue tonight and at discharge. Continue dental financial coordinator labs and vital signs If patient has no further symptoms, discharge in the morning. Qualifiers: Chest pain type: chest pain due to myocardial ischemia Ischemic chest pain type: unstable angina pectoris Qualified Code(s): I20.0 - Unstable angina (2) Coronary artery disease Current Visit: Yes Status: Chronic Assessment and plan: Per patient history. Patient is on Eliquis, Imdur, simvastatin. Qualifiers: Coronary Disease-Associated Artery/Lesion type: lime artery [place] vs. transplanted heart: lime heart Associated angina: with unstable angina Qualified Code(s): I25.110 - Atherosclerotic heart disease of lime coronary artery with unstable angina pectoris (3) Essential hypertension Current Visit: Yes Status: Chronic Assessment and plan: Chronic. Continue home medications. (4) Hyperlipidemia Current Visit: Yes Status: Chronic Assessment and plan: Continue Simvastatin. Qualifiers: Hyperlipidemia type: unspecified Qualified Code(s): E78.5 - Hyperlipidemia , unspecified (5) Dementia Current Visit: Yes Status: Chronic Assessment and plan: Per Pt history. Qualifiers: Dementia type: unspecified type Dementia behavioral disturbance: without behavioral disturbance Qualified Code(s): F03.90 - Unspecified dementia without behavioral disturbance (6) Atrial fibrillation Current Visit: Yes Status: Chronic Assessment and plan: Rate controlled. Pt has a pacer. Continue Eliquis. Qualifiers: Atrial fibrillation type: paroxysmal Qualified Code(s): I48.0 - Paroxysmal atrial fibrillation (7) DVT prophylaxis Current Visit: Yes Status: Acute Assessment and plan: Pt is on Eliquis. - Time Spent With Patient less than 15 minutes - Subjective Interval history: Patient was seen and assessed at 1525. Patient has multiple family members at bedside. He currently denies chest pain. Patient began at about 5:00 yesterday prior to arrival to the emergency department. He is unsure of how long it lasted, family at bedside says it lasted anywhere from 10-20 minutes, he said that it was pressure-like with intermittent sharpness, located in the lower chest and denies radiation. He tells admitting physician that it radiated into his back. Patient is a poor historian has a history of vascular dementia. - Constitutional Vitals: Temp Pulse Resp BP Pulse Ox 98.0 F 77 15 110/68 96 06/27/17 15:52 06/27/17 15:52 06/27/17 15:52 06/27/17 15:52 06/27/17 15:52 General appearance: Present: cooperative, A&O X 3, pleasant, no acute distress, answers questions appropriately - Head Head exam: Present: atraumatic, normal inspection, normocephalic - Eye Eye exam: Present: normal appearance, conjuntiva pink, sclera anicteric - Neck Neck exam general surgery: Present: normal inspection, supple, trachea midline. Absent: lymphadenopathy, tenderness - Respiratory Respiratory exam: Present: CTAB. Absent: accessory muscle use, rales, rhonchi, wheezes - Cardiovascular Cardiovascular exam: Present: RRR, +S1, +S2. Absent: diastolic murmur, gallop, rubs, systolic murmur - GI/Abdominal GI/Abdominal exam: Present: normal bowel sounds, soft. Absent: distended, hepatomegaly, tenderness - Extremities Exam Extremities exam: Present: normal capillary refill, normal inspection, warm, radial pulses palpable and symmetrical. Absent: calf tenderness, cyanotic, pedal edema - Neurological Exam Neurological exam: Present: alert, oriented X3. Absent: facial droop, speech deficit - Skin Skin exam: Present: dry, intact, normal color, warm. Absent: rash Internal Medicine: Result - Labs CBC & Chem 7: 06/27/17 05:00 06/27/17 05:00 Labs: Short CBC 06/27/17 Range/Units 05:00 WBC 6.6 (4.3-11.1) K/mcL Hgb 14.2 (12.9-16.9) g/dL Hct 41.3 (37.5-50.1) % Plt Count 232 (140-400) K/mcL Neutrophils # 2.8 (1.6-8.9) K/mcL BMP 06/27/17 05:00 Sodium 139 Potassium 4.0 Chloride 107 Carbon Dioxide 24 BUN 12 Creatinine 1.17 Glucose 100 H Calcium 9.1 Cardiac Enzymes 06/26/17 06/27/17 Range/Units 22:56 05:00 Troponin I 0.00 0.03 (0-0.03) ng/mL - ABG Interpretation ABG results: PT/INR, D-dimer PT 12.7 Seconds (9.4-12.1) H 06/26/17 18:10 Consult Discharge Plan - Plan Referrals: Rolando Terrell, REHAB DEPARTMENT MANAGER [Primary Care Provider] -
[2017-06-27] MEDS ORDERED: Simethicone 80 MG TAB.CHEW PO PRN (20:40)
[2017-06-28 04:36] LABS: Basophils % 0.5 %; Eosinophils # 0.2 K/mcL (0.0-0.6); Eosinophils % 2.2 %; Hematocrit 39.2 % (37.5-50.1); Hemoglobin 13.3 g/dL (12.9-16.9); Immature Granulocytes % 0.2 % (0-4); Lymphocytes # 2.9 K/mcL (0.6-4.6); Lymphocytes % 33.8 %; Mean Corpuscular HGB Conc 33.9 g/dL (31.6-35.5); Mean Corpuscular Volume 88.5 fL (83.0-100.0); Mean Platelet Volume 9.8 fL (9.4-12.4); Monocytes # 0.8 K/mcL (0.0-1.3); Monocytes % 9.7 %; Neutrophils # 4.6 K/mcL (1.6-8.9); Platelet Count 222 K/mcL (140-400); Red Blood Count 4.43 M/mcL (4.19-5.50); Red Cell Distribution Width 13.2 % (11.5-14.5); Segmented Neutrophils % 53.6 %
[2017-06-28 04:58] LABS: BUN/Creatinine Ratio 13 (6-26); Blood Urea Nitrogen 16 mg/dL (8-26); Calcium 9.1 mg/dL (8.6-10.8); Carbon Dioxide 22 mEq/L (19-29); Chloride 108 mEq/L (98-109); Glucose 84 mg/dL (70-99); Osmolality,Calculated 290 (280-300); Potassium 3.8 mEq/L (3.5-4.5); Sodium 140 mEq/L (136-145); eGFR For African Americans > 60 (> 60); eGFR For Non-African Americans > 60 (> 60)
[2017-06-28] MEDS: APIXABAN 5 MG TABLET PO SCH (07:35)
[2017-06-28] MEDS: Isosorbide MONOnitrate (24 HR) 30 MG TAB.ER.24H PO SCH (07:35)
[2017-06-28] MEDS ORDERED: *HR* OxyCODONE/APAP 5/325 TABLET PO PRN (08:00)
--- NOTE | 2017-06-28 08:28 | Electrocardiograph Report ---
[facility] Test Date: 2017-06-26 Pat Name: Ronny Ferguson Department: [id number] Room: 3B53 Gender: M Branch Operations Specialist: : [id number] Requested By: Michael Hilton Order Number: [id number] Reading MD: Rolando Hobbs DO Measurements Intervals [place] Rate: 69 P: 219 TN: 258 QRS: -40 QRSD: 104 T: -40 QT: 397 QTc: 417 Interpretive Statements ELECTRONIC ATRIAL PACEMAKER MARKED LEFT AXIS DEVIATION PATTERN CONSISTENT WITH PULMONARY DISEASE MODERATE T-WAVE ABNORMALITY, CONSIDER ANTERIOR ISCHEMIA Electronically Signed On 06-28-2017 7:40:45 EDT by Rolando Hobbs DO
--- NOTE | 2017-06-28 08:28 | Electrocardiograph Report ---
[facility] Test Date: 2017-06-26 Pat Name: Ronny Ferguson Department: 104 Room: 3B53 Gender: M [employer]: : [id number] Requested By: Michael Hilton Order Number: [id number] Reading MD: Rolando Hobbs DO Measurements Intervals [place] Rate: 70 P: 190 ID: [id number] QRS: -42 QRSD: 104 T: -29 QT: 415 QTc: 435 Interpretive Statements ELECTRONIC ATRIAL PACEMAKER MARKED LEFT AXIS DEVIATION PATTERN CONSISTENT WITH PULMONARY DISEASE MODERATE T-WAVE ABNORMALITY, CONSIDER ANTERIOR ISCHEMIA INTERPRETATION BASED ON A DEFAULT AGE OF 40 YEARS Electronically Signed On 06-28-2017 7:40:12 EDT by Rolando Hobbs DO
--- NOTE | 2017-06-28 09:59 | Discharge Summary ---
Date of Encounter: 06/28/17 Time of Encounter: 09:54 - Discharge Diagnosis (1) Chest pain Priority: Primary Status: Acute Qualifiers: Chest pain type: other chest pain Qualified Code(s): R07.89 - Other chest pain; R07.8 - Other chest pain (2) Atrial fibrillation Priority: Secondary Status: Chronic Qualifiers: Atrial fibrillation type: paroxysmal Qualified Code(s): I48.0 - Paroxysmal atrial fibrillation (3) Coronary artery disease Priority: Secondary Status: Chronic Qualifiers: Coronary Disease-Associated Artery/Lesion type: [place] artery [place] vs. transplanted heart: pic[place]une heart Associated angina: with unstable angina Qualified Code(s): I25.110 - Atherosclerotic heart disease of [place] coronary artery with unstable angina pectoris (4) Dementia Priority: Secondary Status: Chronic Qualifiers: Dementia type: unspecified type Dementia behavioral disturbance: without behavioral disturbance Qualified Code(s): F03.90 - Unspecified dementia without behavioral disturbance (5) DVT prophylaxis Priority: Secondary Status: Acute (6) Essential hypertension Priority: Secondary Status: Chronic (7) Hyperlipidemia Priority: Secondary Status: Chronic Qualifiers: Hyperlipidemia type: unspecified Qualified Code(s): E78.5 - Hyperlipidemia , unspecified - Discharge Medications Prescriptions: Aspirin Enteric Coated [Aspirin EC] 81 mg PO DAILY #30 tablet. Famotidine [Pepcid] 20 mg PO BID #60 tablet Isosorbide MONOnitrate (24 HR) [Imdur] 30 mg PO DAILY #30 tab Home Medications: Apixaban [Eliquis] 5 mg PO BID 10/20/16 [History] Citalopram [CeleXA] 20 mg PO HS 10/20/16 [History] Diltiazem CD (24hr) [Cardizem CD] 180 mg PO HS 10/20/16 [History] Propranolol HCl 80 mg PO HS 10/20/16 [History] Psyllium Husk [Daily Fiber] 0.52 gm PO HS 10/20/16 [History] Rizatriptan Benzoate [Maxalt] 5 mg PO DAILY PRN 10/20/16 [History] Simvastatin 10 mg PO HS 10/20/16 [History] Namzaric 28 mg-10 mg Capsule 28 mg PO DAILY 04/07/17 [History] Tamsulosin HCl [Flomax] 0.4 mg PO DAILY 04/07/17 [History] Aspirin Enteric Coated [Aspirin EC] 81 mg PO DAILY #30 tablet. 06/28/17 [Rx] Famotidine [Pepcid] 20 mg PO BID #60 tablet 06/28/17 [Rx] Isosorbide MONOnitrate (24 HR) [Imdur] 30 mg PO DAILY #30 tab 06/28/17 [Rx] Allergies/Adverse Reactions: 3 Allergy/AdvReac Type Severity Reaction Status Date / Time meperidine [From Demerol] AdvReac anger Verified 06/26/17 17:54 Procedures/tests Complete & Pending: Procedures Performed prior 72 hours Category Date Time Status EKG [ECG 12 lead ECG] [ECG] AM 0600 Y 06/27/17 06:00 Ordered EV echocardiogram Routine Y 06/26/17 22:45 Completed Date of admission: 06/26/17 21:16 Primary care physician: Rolando Terrell CNP Consults: 06/26/17 18:19 Consult to Cardiology [CONS] Stat Comment: Consulting Provider: Cardiology [facility] Reason for Consult: Chest pain questionable EKG changes Time Notified: 18:19 Call Completed: Yes Discharging clinician: Eleanor Carnes Anticipated date of discharge: 06/28/17 - Patient Status Disposition: Home, Self-Care Condition: Good Functional capacity at discharge: independent ambulation Overall status at discharge: patient is back to baseline - Discharge Instructions Instructions: Chest Pain (DC) Follow Up With: Rolando Terrell CNP [Primary Care Provider] - 07/04/17 10:00 am (Colleen Acosta CNP ) - Diet and Activity Activity: resume usual activities as tolerated Diet: low fat, low cholesterol, low salt diet Hospital course: Mr. Ferguson is a 57 year old male patient with history of atrial fibrillation, bradycardia with permanent pacemaker, CVA was hospitalized here after he came to the ER with complaints of chest pain which was intermittent and associated with nausea and shortness of breath along with diaphoresis. Pain was 9 out of 10 in severity. He also had some abnormal EKG changes. As such he was hospitalized and cardiology was consulted. Patient was placed on telemetry and troponins trended. His lungs were negative. Cardiology evaluated the patient and did not think his chest pain was due to cardiac causes. They recommended looking into other causes for his chest pain. Patient does have episodes of reflux disease and so he will be treated with Pepcid for a short duration to see if this helps with his symptoms. He will continue to take baby dose aspirin and can follow up with his primary care provider to assess his response to this treatment plan. He will be discharged today as is feeling much better and no longer has chest pain at this time. - Time Spent with Patient Total time spent providing and/or coordinating discharge services: Less than 30 minutes (25 min) - Constitutional Vitals: Temp Pulse Resp BP Pulse Ox 98.2 F 70 16 185/61 96 06/28/17 07:25 06/28/17 07:25 06/28/17 07:25 06/28/17 07:25 06/28/17 07:25 General appearance: Present: cooperative, A&O X 3, pleasant, no acute distress, answers questions appropriately - Respiratory Respiratory exam: Present: CTAB. Absent: accessory muscle use, rales, rhonchi, wheezes - Cardiovascular Cardiovascular exam: Present: RRR, +S1, +S2. Absent: diastolic murmur, gallop, rubs, systolic murmur - GI/Abdominal GI/Abdominal exam: Present: normal bowel sounds, soft, no peritoneal signs. Absent: distended, tenderness
[2017-06-28 10:07] VITALS: BP 123/55
[2017-06-28] MEDS ORDERED: Propranolol LA (24 HR) 80 MG CAP.SA.24H PO SCH (21:00)
[2017-06-28] MEDS ORDERED: Diltiazem CD (24hr) 180 MG CAPSULE PO SCH (21:00)
== END 2017-06-28 11:01 | disposition home or self-care (01) ==
LOC: EMEROO 17:48 → 3BNU 17:48 → SUATTDRO 21:16 → 3BNU 22:35
PROVIDERS: ADMIT Internal Medicine; ATTEND Internal Medicine

== ENCOUNTER 2018-06-07 03:30 | Observation (INO) ==
[2018-06-07] MEDS ORDERED: Naloxone 0.4 MG/ML INJ IVP PRN (06:55)
[2018-06-07] MEDS ORDERED: Dextrose Gel 15 GM/37.5 ML TUBE PO PRN ×2 (06:58)
[2018-06-07] MEDS ORDERED: D5% in Water 1,000 ML IVC PRN (06:58)
[2018-06-07] MEDS ORDERED: *HR* Dextrose 50 % in Water (Syg) 50 ML SYRINGE IVP PRN (06:58)
[2018-06-07 07:18] LABS: Hematocrit 43.6 % (37.5-50.1); Hemoglobin 15.2 g/dL (12.9-16.9); Mean Corpuscular HGB Conc 34.9 g/dL (31.6-35.5); Mean Platelet Volume 9.8 fL (9.4-12.4); Platelet Count 244 K/mcL (140-400); Red Blood Count 5.07 M/mcL (4.19-5.50); Red Cell Distribution Width 13.8 % (11.5-14.5)
--- NOTE | 2018-06-07 08:39 | Internal Med History&Physical ---
Date of Encounter: 06/07/18 Time of Encounter: 05:40 Internal Medicine - H&P: HPI Chief complaint: Chest pain Admitted From: Home Plans for Post Hospital Care: Home History of present illness: Mr. Ferguson is a 57 year old male Patient presented as a transfer from [place] ER, has history of dementia and states that he does not remember why he is here. HPI obtained from ER note at [place]. He presented after having chest pain while watching TV around 8pm. He was also very diaphoretic and nauseated as well but did not vomit. He denied shortness of breath. He has a history of atrial fibrillation and has a pacemaker for this reason. He had a stroke in 2013 as well. In the ER he was started on a nitro drip and given 4mg of morphine. After the drip was started the pain began radiating to the patient's upper back so there was concern for possible dissection. CT performed which was negative. 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 He was subsequently ruled to be in a paced rhythm with no acute injury pattern present. Troponins initially were negative. He was then transferred to [facility] for further management. Currently the patient denies chest pain, nausea, diarrhea, constipation and abdominal pain. He is resting comfortably in the bed this morning. Past Med Surg Social Fam HX - Past Medical History Medical history: atrial fibrillation, coronary artery disease, CVA, dementia, hyperlipidemia, hypertension, other Additional medical history: Patient reports has Alzheimer's. Patient can answer simple questions, but reports has difficulty recalling past medical history. No family present at this time. Psychiatric history: no psych history - Past Surgical History Surgical History: cholecystectomy, herniorrhaphy, pacemaker/AICD Additional surgical history: PACEMAKER PLACEMENT, hemorrhoid - Social History Smoking Status: Former smoker Smokeless Tobacco Status: No Alcohol use: none Drug use: none - Family History Mother History Unknown: Yes Living Status: Hx Family Cardiac Disorders: Yes Hx Family Endocrine Disorder: Yes (DM) Father History Unknown: Yes Living Status: Hx Family Cardiac Disorders: Yes Hx Family Cancer: Yes (Leukemia) Internal Medicine - H&P: Meds Apixaban [Eliquis] 5 mg PO BID 10/20/16 [History] Citalopram [CeleXA] 20 mg PO HS 10/20/16 [History] Diltiazem CD (24hr) [Cardizem CD] 180 mg PO HS 10/20/16 [History] Propranolol HCl 80 mg PO HS 10/20/16 [History] Psyllium Husk [Daily Fiber] 0.52 gm PO HS 10/20/16 [History] Simvastatin 10 mg PO HS 10/20/16 [History] Namzaric 28 mg-10 mg Capsule 28 mg PO DAILY 04/07/17 [History] Tamsulosin HCl [Flomax] 0.4 mg PO DAILY 04/07/17 [History] Aspirin Enteric Coated [Aspirin EC] 81 mg PO DAILY #30 tablet. 06/28/17 [Rx] Isosorbide MONOnitrate (24 HR) [Imdur] 90 mg PO DAILY 06/06/18 [History] Nitroglycerin [Nitrostat] 0.4 mg SL Q5M PRN 06/07/18 [History] 3 Allergy/AdvReac Type Severity Reaction Status Date / Time meperidine [From Demerol] AdvReac anger Verified 06/06/18 23:28 All Systems PM: A 10-system review of systems was performed and is negative for pertinent findings except as documented above in the HPI. - Constitutional Vitals: Temp Pulse Resp BP Pulse Ox 97.3 F L 69 16 118/88 95 06/07/18 07:50 06/07/18 07:50 06/07/18 07:50 06/07/18 07:50 06/07/18 07:50 General appearance: Present: cooperative, pleasant Exam: Patient did not remember why he was here but knew his name and birthdate. He answered questions appropriately. - Head Head exam: Present: normal inspection - Eye Eye exam: Present: EOMI, normal appearance - Respiratory Respiratory exam: Present: CTAB. Absent: respiratory distress, wheezes - Cardiovascular Cardiovascular exam: Present: RRR. Absent: diastolic murmur, systolic murmur - GI/Abdominal GI/Abdominal exam: Present: soft. Absent: normal bowel sounds, tenderness - Extremities Exam Extremities exam: Present: warm, radial pulses palpable and symmetrical. Absent : tenderness - Neurological Exam Neurological exam: Present: no focal deficits, strengths equal and symetr throughout. Absent: motor sensory deficit, facial droop, speech deficit - Skin Skin exam: Present: dry, normal color, warm Internal Med - H&P Results - Labs CBC & Chem 7: 06/07/18 05:45 Labs: Short CBC 06/07/18 Range/Units 05:45 WBC 7.5 (4.3-11.1) K/mcL Hgb 15.2 D (12.9-16.9) g/dL Hct 43.6 (37.5-50.1) % Plt Count 244 (140-400) K/mcL Cardiac Enzymes 06/07/18 Range/Units 05:45 Troponin I < 0.03 (< 0.04) ng/mL - Assessment and plan (1) Chest pain Current Visit: No Status: Acute Assessment and plan: Patient currently denies chest pain. Negative trops and EKG showed no acute ischemic changes. When ER called for transfer of this patient I was initially hesitant as the ER physician had difficulty describing the EKG, and said that he thought there may be ST changes. On-call cardiology confirmed that their were no ischemic changes. Other workup in the ER also was negative including CT. 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 Qualifiers: Chest pain type: other chest pain Qualified Code(s): R07.89 - Other chest pain; R07.8 - Other chest pain (2) Dementia Current Visit: No Status: Chronic Assessment and plan: Patient has underlying dementia at baseline, does not remember certain facts about his health or why he is here. Continue to monitor. Qualifiers: Dementia type: unspecified type Dementia behavioral disturbance: without behavioral disturbance Qualified Code(s): F03.90 - Unspecified dementia without behavioral disturbance (3) Atrial fibrillation Current Visit: No Status: Chronic Assessment and plan: As per patient's records, he has a history of atrial fibrillation, and is apparently on eliquis. Also takes cardizem outpatient as well as having a pace maker. Continue home meds Continue to monitor. Qualifiers: Atrial fibrillation type: paroxysmal Qualified Code(s): I48.0 - Paroxysmal atrial fibrillation - Time Spent With Patient Total time spent is greater than 50% in coordination of care (as documented) at patient's floor/unit and/or counseling patient: Greater than 35 minutes
[2018-06-07] MEDS ORDERED: NAMZARIC PO SCH (09:00)
[2018-06-07] MEDS: Apixaban 5 MG TABLET PO SCH ×2 (10:12→20:39)
[2018-06-07] MEDS: Aspirin Enteric Coated 81 MG Tablet PO SCH (10:12)
[2018-06-07] MEDS ORDERED: Nitroglycerin 0.4 MG TAB.SUBL SL PRN (12:13)
[2018-06-07] MEDS: Insulin LISPRO 300 UNITS/3 ML VIAL SQ SCH ×3 (13:10→19:38)
--- NOTE | 2018-06-07 13:33 | Internal Med Progress Note ---
<AggieRodrigo S - Last Filed: 06/07/18 16:20> Hospitalist Progress Note - Encounter Date of Encounter: 06/07/18 Time of Encounter: 10:00 - Subjective Interval History: 57 year old male with PMHx of afib s/p pacemaker, CVA (2012) with residual dementia, HTN, HLD presented with chest pain and diaphoresis. Patient states he was sitting down last night and developed sudden onset chest pain in his left chest that radiated down his left arm. The pain is not associated with exertion and resolves after 20 minutes. It is sharp in nature and relieved with nitroglycerin. Patient initially presented to [place] ED and was transferred to [place]. His troponins are negative x2, EKG shows paced rhythm with no ischemic changes. Patient also complained of pain radiating to his back after receiving a dose of nitroglycerin, so a CTA was ordered, which was negative for dissection. Patient take nitroglycerin at home for chest pain, but came in because the pain was "worse". Today patient still complains of mild chest pain, but it is improved from last night. He denies LOWRY, SOB, abdominal pain, n/v, numbness/tingling. - Exam Vitals: Temp Pulse Resp BP Pulse Ox 97.8 F 69 16 109/86 95 06/07/18 11:07 06/07/18 11:07 06/07/18 11:07 06/07/18 11:07 06/07/18 11:07 Exam: Gen: no acute distress, A&0 x3, dementia Heart: RRR, no murmurs appreciated Lungs: Clear to auscultation bilaterally Chest: non-tender to palpation, no rashes Abdomen: soft, non-tender, non-distended Extremities: no edema Vascular: pulses +2 in all extremities, regular Neuro: no focal deficits noted - Assessment and Plan (1) Atrial fibrillation Current Visit: No Status: Chronic Assessment and Plan: Patient's HR 65 today s/p pacemaker Continue cardizem Continue eliquis for anticoagulation (2) Essential hypertension Current Visit: No Status: Chronic Assessment and Plan: BP 112/81 today Continue to monitor (3) Hyperlipidemia Current Visit: No Status: Chronic Assessment and Plan: Continue simvastatin (4) Dementia Current Visit: No Status: Chronic Assessment and Plan: Vascular dementia s/p CVA in 2012 Patient at baseline Continue to monitor (5) Unstable angina Current Visit: Yes Status: Acute Assessment and Plan: Chest pain improved today Troponins negative x2 EKG paced rhythm with no ischemic changes Will get lexiscan tomorrow If positive, will consult cardiology Patient currently on nitroglycerin for pain, nitroglycerin will be discontinued overnight to qualify for lexiscan Will make patient NPO at midnight for lexiscan tomorrow Stress test (04/09) was negative for ischemia Echo (07/10) showed EF of 60% DVT Prophylaxis: Eliquis - Time Spent with Patient Total time spent is greater than 50% in coordination of care (as documented) at patient's floor/unit and/or counseling patient: 25 - 35 minutes Plan of Care Discussed with: family Internal Medicine: Result - Labs CBC & Chem 7: 06/07/18 05:45 Labs: Short CBC 06/07/18 Range/Units 05:45 WBC 7.5 (4.3-11.1) K/mcL Hgb 15.2 D (12.9-16.9) g/dL Hct 43.6 (37.5-50.1) % Plt Count 244 (140-400) K/mcL Cardiac Enzymes 06/07/18 06/07/18 Range/Units 05:45 11:54 Troponin I < 0.03 < 0.03 (< 0.04) ng/mL Consult Discharge Plan - Plan Referrals: NONE,PCP [Primary Care Provider] - <Rory Wood - Last Filed: 06/07/18 18:59> Hospitalist Progress Note - Encounter Date of Encounter: 06/07/18 - Exam Vitals: Temp Pulse Resp BP Pulse Ox 97.9 F 69 16 112/81 93 06/07/18 16:11 06/07/18 16:11 06/07/18 16:11 06/07/18 16:11 06/07/18 16:11 - Assessment and Plan (1) Essential hypertension Current Visit: No Status: Chronic (2) Hyperlipidemia Current Visit: No Status: Chronic (3) Dementia Current Visit: No Status: Chronic (4) Atrial fibrillation Current Visit: No Status: Chronic (5) Unstable angina Current Visit: Yes Status: Acute - Time Spent with Patient Total time spent is greater than 50% in coordination of care (as documented) at patient's floor/unit and/or counseling patient: Internal Medicine: Result - Labs CBC & Chem 7: 06/07/18 05:45 Labs: Short CBC 06/07/18 Range/Units 05:45 WBC 7.5 (4.3-11.1) K/mcL Hgb 15.2 D (12.9-16.9) g/dL Hct 43.6 (37.5-50.1) % Plt Count 244 (140-400) K/mcL Cardiac Enzymes 06/07/18 06/07/18 Range/Units 05:45 11:54 Troponin I < 0.03 < 0.03 (< 0.04) ng/mL - Attending Attestation I examined this patient and my medical decision-making was reviewed with the Resident Physician Dr. Dillon. I agree with the documented findings, disposition and treatment plan as described except to the extent set forth below. <Rodrigo Marcial - Last Filed: 06/07/18 16:20> (1) Atrial fibrillation Qualifiers: Atrial fibrillation type: paroxysmal Qualified Code(s): I48.0 - Paroxysmal atrial fibrillation (3) Hyperlipidemia Qualifiers: Hyperlipidemia type: unspecified Qualified Code(s): E78.5 - Hyperlipidemia, unspecified (4) Dementia Qualifiers: Dementia type: unspecified type Dementia behavioral disturbance: without behavioral disturbance Qualified Code(s): F03.90 - Unspecified dementia without behavioral disturbance <Rory Wood - Last Filed: 06/07/18 18:59> (2) Hyperlipidemia Qualifiers: Hyperlipidemia type: unspecified Qualified Code(s): E78.5 - Hyperlipidemia, unspecified (3) Dementia Qualifiers: Dementia type: unspecified type Dementia behavioral disturbance: without behavioral disturbance Qualified Code(s): F03.90 - Unspecified dementia without behavioral disturbance (4) Atrial fibrillation Qualifiers: Atrial fibrillation type: paroxysmal Qualified Code(s): I48.0 - Paroxysmal atrial fibrillation
[2018-06-07] MEDS ORDERED: Diltiazem CD (24hr) 180 MG CAPSULE PO SCH (21:00)
[2018-06-07] MEDS ORDERED: Insulin LISPRO 300 UNITS/3 ML VIAL SQ SCH (21:00)
[2018-06-08] MEDS ORDERED: *HR* LORazepam 2 MG/ML VIAL IVP ONE (03:14)
[2018-06-08] MEDS ORDERED: Regadenoson 0.4 MG/5 ML SYRINGE IVP ONE (06:09)
[2018-06-08 07:00] LABS: BUN/Creatinine Ratio 12 (6-26); Blood Urea Nitrogen 13 mg/dL (6-20); Calcium 9.3 mg/dL (8.6-10.3); Carbon Dioxide 24 mEq/L (23-29); Chloride 106 mEq/L (98-107); Glucose 111 mg/dL (70-105); Osmolality,Calculated 285 (280-300); Potassium 3.8 mEq/L (3.5-5.1); Sodium 137 mEq/L (136-145); eGFR For Non-African Americans > 60 (> 60)
[2018-06-08] MEDS: Insulin LISPRO 300 UNITS/3 ML VIAL SQ SCH (07:30)
[2018-06-08] MEDS: Apixaban 5 MG TABLET PO SCH (09:30)
[2018-06-08] MEDS: Aspirin Enteric Coated 81 MG Tablet PO SCH (09:30)
[2018-06-08 11:29] VITALS: BP 141/90
--- NOTE | 2018-06-08 13:09 | Discharge Summary ---
<Gurwinder Dillon R - Last Filed: 06/08/18 13:07> - NOTES TO OUTPATIENT PROVIDER Notes to Outpatient Provider: Admitted with chest pain. Stress test negative for ischemia or infarct. Orders not resulted at time of discharge: Pending orders 06/08/18 07:00 NM lucille perf SPECT multi [NM] Routine Date of Encounter: 06/08/18 Time of Encounter: 13:09 - Discharge Diagnosis (1) Unstable angina Priority: Primary Status: Acute (2) Essential hypertension Priority: Secondary Status: Chronic (3) Hyperlipidemia Priority: Secondary Status: Chronic Qualifiers: Hyperlipidemia type: unspecified Qualified Code(s): E78.5 - Hyperlipidemia , unspecified (4) Dementia Priority: Secondary Status: Chronic Qualifiers: Dementia type: unspecified type Dementia behavioral disturbance: without behavioral disturbance Qualified Code(s): F03.90 - Unspecified dementia without behavioral disturbance (5) Atrial fibrillation Priority: Secondary Status: Chronic Qualifiers: Atrial fibrillation type: paroxysmal Qualified Code(s): I48.0 - Paroxysmal atrial fibrillation Hospital course: Mr. Ferguson is a 57 year old male with PMH of A. fib on Eliquis, AICD, CAD, CVA, dementia, hyperlipidemia, and hypertension admitted to the hospital for chest pain. His dementia and limits his recollection of the preceding events. In the emergency department he reported having typical chest pain was sitting at home watching TV. He was given nitroglycerin and morphine. CTA performed was negative for PE or aortic dissection. EKG showed a paced rhythm with no acute changes. Troponins negative 2. His symptoms resolved upon admission. He received a nuclear stress test that was negative for ischemia or infarct. Today he is denying any chest pain, dyspnea, nausea, vomiting, or diaphoresis. He is hemodynamically stable and can be discharged home and is to resume his home medication regimen. Discharge discussed with: patient, family - Time Spent with Patient Total time spent providing and/or coordinating discharge services: - Discharge Medications Home Medications: Apixaban [Eliquis] 5 mg PO BID 10/20/16 [History] Citalopram [CeleXA] 20 mg PO HS 10/20/16 [History] Diltiazem CD (24hr) [Cardizem CD] 180 mg PO HS 10/20/16 [History] Propranolol HCl 80 mg PO HS 10/20/16 [History] Psyllium Husk [Daily Fiber] 0.52 gm PO HS 10/20/16 [History] Simvastatin 10 mg PO HS 10/20/16 [History] Namzaric 28 mg-10 mg Capsule 28 mg PO DAILY 04/07/17 [History] Tamsulosin HCl [Flomax] 0.4 mg PO DAILY 04/07/17 [History] Aspirin Enteric Coated [Aspirin EC] 81 mg PO DAILY #30 tablet. 06/28/17 [Rx] Isosorbide MONOnitrate (24 HR) [Imdur] 90 mg PO DAILY 06/06/18 [History] Nitroglycerin [Nitrostat] 0.4 mg SL Q5M PRN 06/07/18 [History] Allergies/Adverse Reactions: 3 Allergy/AdvReac Type Severity Reaction Status Date / Time meperidine [From Demerol] AdvReac anger Verified 06/06/18 23:28 Date of admission: 06/07/18 05:01 Primary care physician: PCP NONE Discharging clinician: Gurwinder Dillon Anticipated date of discharge: 06/08/18 - Constitutional Vitals: Temp Pulse Resp BP Pulse Ox 98.1 F 107 15 141/90 97 06/08/18 09:00 06/08/18 09:00 06/08/18 09:00 06/08/18 09:00 06/08/18 09:00 General appearance: Present: cooperative, pleasant Exam: Gen: no acute distress, alert and oriented, some difficulty with recent historical information Heart: RRR, no murmurs appreciated Lungs: Clear to auscultation bilaterally, no wheezes, rhonchi, or crackles Chest: non-tender to palpation, no rashes Abdomen: soft, non-tender, non-distended, bowel sounds present Extremities: no edema Vascular: pulses +2 in all extremities, regular Neuro: no focal deficits noted - Patient Status Disposition: Home, Self-Care Condition: Fair Functional capacity at discharge: independent ambulation Overall status at discharge: patient is back to baseline - Discharge Instructions Instructions: Atrial Fibrillation (DC), Cardiac Stress Test (DC), Chest Pain ( DC), Chronic Hypertension (DC) Follow Up With: Nilson Jeffrey MD [Non-Partnered Physician] - 06/14/18 8:50 am Additional Instructions: Taking her medications as prescribed Follow-up with her primary care physician Please return to the hospital appear symptoms return or worsen - Diet and Activity Activity: increase activity as tolerated Diet: low salt diet <Rory Wood - Last Filed: 06/08/18 21:53> Orders not resulted at time of discharge: Pending orders 06/08/18 07:00 NM lucille perf SPECT multi [NM] Routine Date of Encounter: 06/08/18 - Discharge Diagnosis (1) Essential hypertension Status: Chronic (2) Hyperlipidemia Status: Chronic Qualifiers: Hyperlipidemia type: unspecified Qualified Code(s): E78.5 - Hyperlipidemia , unspecified (3) Dementia Status: Chronic Qualifiers: Dementia type: unspecified type Dementia behavioral disturbance: without behavioral disturbance Qualified Code(s): F03.90 - Unspecified dementia without behavioral disturbance (4) Atrial fibrillation Status: Chronic Qualifiers: Atrial fibrillation type: paroxysmal Qualified Code(s): I48.0 - Paroxysmal atrial fibrillation (5) Unstable angina Status: Acute Hospital course: Mr. Ferguson is a 57 year old male - Time Spent with Patient Total time spent providing and/or coordinating discharge services: Date of admission: 06/07/18 05:01 Primary care physician: PCP NONE - Constitutional Vitals: Temp Pulse Resp BP Pulse Ox 98.1 F 107 15 141/90 97 06/08/18 09:00 06/08/18 09:00 06/08/18 09:00 06/08/18 09:00 06/08/18 09:00 - Attending Attestation I examined this patient and my medical decision-making was reviewed with the Resident Physician Dr. Dillon. I agree with the documented findings, disposition and treatment plan as described except to the extent set forth below.
== END 2018-06-08 14:09 | disposition home or self-care (01) ==
LOC: 2NENU → SUATTDRO 05:01
PROVIDERS: ADMIT Family Medicine; ATTEND Student in an Organized Health Care Education/Training Program

== ENCOUNTER 2021-05-14 23:34 | Inpatient (IN) ==
[2021-05-15] MEDS ORDERED: Naloxone 0.4 MG/ML INJ IVP PRN (03:06)
[2021-05-15] MEDS ORDERED: Ondansetron 4 MG/2 ML VIAL IVP PRN (03:06)
[2021-05-15 04:00] LABS: Basophils % 0.6 %; Red Cell Distribution Width 19.3 % (11.5-14.5)
[2021-05-15 04:01] LABS: Eosinophils # 0.2 K/mcL (0.0-0.6); Eosinophils % 3.9 %; Hematocrit 20.5 % (37.5-50.1); Hemoglobin 6.1 g/dL (12.9-16.9); Immature Granulocytes % 0.4 % (0-4); Lymphocytes # 1.7 K/mcL (0.6-4.6); Lymphocytes % 30.6 %; Mean Corpuscular HGB Conc 29.8 g/dL (31.6-35.5); Mean Corpuscular Hemoglobin 21.5 pg (28.0-33.3); Mean Corpuscular Volume 72.2 fL (83.0-100.0); Mean Platelet Volume 9.5 fL (9.4-12.4); Monocytes # 0.8 K/mcL (0.0-1.3); Nucleated Red Blood Cells 0.6 /100 WBC (0); Platelet Count 309 K/mcL (140-400); Red Blood Count 2.84 M/mcL (4.19-5.50); Segmented Neutrophils % 50.5 %; White Blood Count 5.4 K/mcL (4.3-11.1)
[2021-05-15 04:03] LABS: Neutrophils # 2.7 K/mcL (1.6-8.9)
[2021-05-15 04:08] LABS: INR 1.2; Prothrombin Time 13.8 Seconds (9.4-12.1)
[2021-05-15 04:23] LABS: BUN/Creatinine Ratio 15 (6-26); Blood Urea Nitrogen 16 mg/dL (8-23); Calcium 8.4 mg/dL (8.6-10.3); Carbon Dioxide 22 mEq/L (23-29); Chloride 111 mEq/L (98-107); Glucose 97 mg/dL (70-105); Osmolality,Calculated 291 (280-300); Potassium 3.3 mEq/L (3.5-5.1); Sodium 140 mEq/L (136-145); eGFR For African Americans > 60 (> 60); eGFR For Non-African Americans > 60 (> 60)
[2021-05-15 04:25] LABS: Anisocytosis 1+ (Not Present); Hypochromasia Present (Not Present); Platelet Estimate Normal (Normal); Poikilocytosis 1+ (Not Present); Toxic Granulation Present (Not Present)
[2021-05-15] MEDS ORDERED: 0.9 % Sodium Chloride 250 ML ONE (05:03)
[2021-05-15] MEDS ORDERED: Potassium Chloride 40 MEQ, Lidocaine 1% 2 ML in 0.9 % Sodium Chloride 500 ML IVPB ONE (06:45)
[2021-05-15] MEDS: Pantoprazole 40 MG VIAL IVP SCH ×2 (07:53→16:50)
[2021-05-15 10:10] LABS: Hematocrit 27.2 % (37.5-50.1); Hemoglobin 8.1 g/dL (12.9-16.9); Mean Corpuscular HGB Conc 29.8 g/dL (31.6-35.5); Mean Corpuscular Hemoglobin 22.4 pg (28.0-33.3); Mean Corpuscular Volume 75.3 fL (83.0-100.0); Mean Platelet Volume 9.6 fL (9.4-12.4); Platelet Count 316 K/mcL (140-400); Red Blood Count 3.61 M/mcL (4.19-5.50); Red Cell Distribution Width 20.6 % (11.5-14.5); White Blood Count 5.6 K/mcL (4.3-11.1)
[2021-05-15 10:31] LABS: Iron 32 mcg/dL (65-175)
[2021-05-15 11:16] LABS: Ferritin < 8 ng/mL (20-250)
[2021-05-15 12:11] LABS: % Iron Saturation 7 % (20-55); Transferrin 339 mg/dL (203-362)
[2021-05-15] MEDS ORDERED: Lidocaine -MPF 2% 5 ML VIAL SQ ONE (13:00)
[2021-05-15] MEDS ORDERED: *HR* Propofol 200 MG/20 ML VIAL IVP ONE ×2 (13:00→14:52)
[2021-05-15] MEDS ORDERED: *HR* FentaNYL (PF) 100 MCG/2 ML VIAL ONE ×2 (14:52)
[2021-05-16 02:31] LABS: Basophils % 0.6 %; Eosinophils # 0.3 K/mcL (0.0-0.6); Eosinophils % 5.2 %; Hematocrit 24.4 % (37.5-50.1); Hemoglobin 7.3 g/dL (12.9-16.9); Immature Granulocytes % 0.9 % (0-4); Lymphocytes # 1.7 K/mcL (0.6-4.6); Lymphocytes % 25.5 %; Mean Corpuscular HGB Conc 29.9 g/dL (31.6-35.5); Mean Corpuscular Hemoglobin 22.2 pg (28.0-33.3); Mean Corpuscular Volume 74.2 fL (83.0-100.0); Mean Platelet Volume 9.6 fL (9.4-12.4); Monocytes # 0.8 K/mcL (0.0-1.3); Monocytes % 12.9 %; Neutrophils # 3.6 K/mcL (1.6-8.9); Nucleated Red Blood Cells 0.5 /100 WBC (0); Platelet Count 308 K/mcL (140-400); Red Blood Count 3.29 M/mcL (4.19-5.50); Red Cell Distribution Width 20.3 % (11.5-14.5); Segmented Neutrophils % 54.9 %; White Blood Count 6.5 K/mcL (4.3-11.1)
[2021-05-16 02:47] LABS: BUN/Creatinine Ratio 10 (6-26); Blood Urea Nitrogen 9 mg/dL (8-23); Calcium 8.2 mg/dL (8.6-10.3); Carbon Dioxide 24 mEq/L (23-29); Chloride 110 mEq/L (98-107); Glucose 80 mg/dL (70-105); Osmolality,Calculated 286 (280-300); Potassium 3.7 mEq/L (3.5-5.1); Sodium 139 mEq/L (136-145); eGFR For African Americans > 60 (> 60); eGFR For Non-African Americans > 60 (> 60)
[2021-05-16] MEDS: Pantoprazole 40 MG VIAL IVP SCH (06:46)
[2021-05-16] MEDS: DilTIAZem CD (24hr) 180 MG CAP.ER.24H PO SCH (10:24)
[2021-05-16] MEDS: Divalproex (12 HR) 250 MG TABLET PO SCH ×2 (10:37→21:11)
[2021-05-16] MEDS: Isosorbide MONOnitrate (24 HR) 30 MG TAB.ER.24H PO SCH ×2 (16:03→21:11)
[2021-05-17 05:15] LABS: Red Blood Count 3.16 M/mcL (4.19-5.50); Red Cell Distribution Width 21.1 % (11.5-14.5)
[2021-05-17 05:17] LABS: Hematocrit 23.6 % (37.5-50.1); Hemoglobin 6.9 g/dL (12.9-16.9); Mean Corpuscular HGB Conc 29.2 g/dL (31.6-35.5); Mean Corpuscular Hemoglobin 21.8 pg (28.0-33.3); Mean Corpuscular Volume 74.7 fL (83.0-100.0); Mean Platelet Volume 9.8 fL (9.4-12.4); Platelet Count 300 K/mcL (140-400); White Blood Count 6.7 K/mcL (4.3-11.1)
[2021-05-17 05:33] LABS: BUN/Creatinine Ratio 13 (6-26); Blood Urea Nitrogen 13 mg/dL (8-23); Calcium 7.8 mg/dL (8.6-10.3); Carbon Dioxide 22 mEq/L (23-29); Chloride 109 mEq/L (98-107); Glucose 105 mg/dL (70-105); Osmolality,Calculated 282 (280-300); Potassium 3.8 mEq/L (3.5-5.1); Sodium 136 mEq/L (136-145); eGFR For African Americans > 60 (> 60); eGFR For Non-African Americans > 60 (> 60)
[2021-05-17] MEDS ORDERED: 0.9 % Sodium Chloride 250 ML IVC SCH (08:30)
[2021-05-17] MEDS ORDERED: SODIUM CHLORIDE/NAHCO3/KCL/PEG 4,000 ML SOLN.RECON PO ONE (09:15)
[2021-05-17] MEDS: Divalproex (12 HR) 250 MG TABLET PO SCH ×2 (09:20→20:47)
[2021-05-17] MEDS: Isosorbide MONOnitrate (24 HR) 30 MG TAB.ER.24H PO SCH ×3 (09:21→20:47)
[2021-05-17] MEDS: DilTIAZem CD (24hr) 180 MG CAP.ER.24H PO SCH (09:21)
[2021-05-17 14:39] LABS: Hematocrit 26.5 % (37.5-50.1); Hemoglobin 7.8 g/dL (12.9-16.9)
[2021-05-18 01:33] LABS: Hematocrit 31.1 % (37.5-50.1); Hemoglobin 9.1 g/dL (12.9-16.9); Mean Corpuscular HGB Conc 29.3 g/dL (31.6-35.5); Mean Corpuscular Hemoglobin 22.9 pg (28.0-33.3); Mean Corpuscular Volume 78.1 fL (83.0-100.0); Platelet Count 331 K/mcL (140-400); Red Blood Count 3.98 M/mcL (4.19-5.50); Red Cell Distribution Width 21.4 % (11.5-14.5); White Blood Count 7.7 K/mcL (4.3-11.1)
[2021-05-18 01:42] LABS: INR 1.1; Prothrombin Time 12.5 Seconds (9.4-12.1)
[2021-05-18 01:45] LABS: Activated Partial Thrombo Time 28.5 Seconds (26.0-36.0)
[2021-05-18 02:58] LABS: BUN/Creatinine Ratio 11 (6-26); Blood Urea Nitrogen 11 mg/dL (8-23); Calcium 8.3 mg/dL (8.6-10.3); Carbon Dioxide 20 mEq/L (23-29); Chloride 107 mEq/L (98-107); Glucose 85 mg/dL (70-105); Osmolality,Calculated 279 (280-300); Potassium 4.2 mEq/L (3.5-5.1); Sodium 135 mEq/L (136-145); eGFR For African Americans > 60 (> 60); eGFR For Non-African Americans > 60 (> 60)
[2021-05-18] MEDS: Isosorbide MONOnitrate (24 HR) 30 MG TAB.ER.24H PO SCH ×4 (09:38→21:12)
[2021-05-18] MEDS: Divalproex (12 HR) 250 MG TABLET PO SCH ×2 (09:53→21:12)
[2021-05-18] MEDS: DilTIAZem CD (24hr) 180 MG CAP.ER.24H PO SCH (09:53)
[2021-05-18] MEDS ORDERED: Lidocaine -MPF 2% 5 ML VIAL ONE (12:33)
[2021-05-19 01:42] LABS: Basophils % 0.8 %; Eosinophils # 0.3 K/mcL (0.0-0.6); Eosinophils % 6.3 %; Hemoglobin 8.4 g/dL (12.9-16.9); Immature Granulocytes % 0.4 % (0-4); Lymphocytes # 1.5 K/mcL (0.6-4.6); Lymphocytes % 28.1 %; Mean Corpuscular Hemoglobin 22.4 pg (28.0-33.3); Mean Corpuscular Volume 77.3 fL (83.0-100.0); Mean Platelet Volume 9.3 fL (9.4-12.4); Monocytes # 0.9 K/mcL (0.0-1.3); Monocytes % 17.1 %; Neutrophils # 2.5 K/mcL (1.6-8.9); Platelet Count 284 K/mcL (140-400); Red Blood Count 3.75 M/mcL (4.19-5.50); Red Cell Distribution Width 21.6 % (11.5-14.5); Segmented Neutrophils % 47.3 %; White Blood Count 5.3 K/mcL (4.3-11.1)
[2021-05-19 02:03] LABS: BUN/Creatinine Ratio 6 (6-26); Blood Urea Nitrogen 5 mg/dL (8-23); Calcium 8.5 mg/dL (8.6-10.3); Carbon Dioxide 23 mEq/L (23-29); Chloride 107 mEq/L (98-107); Glucose 99 mg/dL (70-105); Osmolality,Calculated 279 (280-300); Potassium 3.6 mEq/L (3.5-5.1); Sodium 136 mEq/L (136-145); eGFR For African Americans > 60 (> 60); eGFR For Non-African Americans > 60 (> 60)
[2021-05-19] MEDS: Isosorbide MONOnitrate (24 HR) 30 MG TAB.ER.24H PO SCH ×2 (09:00→16:49)
[2021-05-19] MEDS: DilTIAZem CD (24hr) 180 MG CAP.ER.24H PO SCH (09:01)
[2021-05-19] MEDS: Divalproex (12 HR) 250 MG TABLET PO SCH (09:01)
[2021-05-19 20:18] VITALS: BP 101/64; PULSE 71; TEMP 98.3; O2SAT 93
[2021-05-19] MEDS ORDERED: Apixaban 5 MG TABLET PO SCH (21:00)
[2021-05-19] MEDS ORDERED: *HR* Propofol 200 MG/20 ML VIAL IVP ONE (21:31)
[2021-05-19] MEDS ORDERED: EPHEDrine 50 MG/ML VIAL IVP ONE (21:31)
[2021-05-19] MEDS ORDERED: Lidocaine -MPF 2% 5 ML VIAL SQ ONE (21:31)
== END 2021-05-19 21:32 | disposition home health service (06) | DRG 812 ==
LOC: 2NNU → SUATTDRO 05-16 15:12 → 2ANU 05-17 17:22
PROVIDERS: ADMIT Family Medicine; ATTEND Internal Medicine
PROC: ENDOCBX (2021-05-19 13:00)